=== PATIENT | female | born 1975 | race Two or more races ===

== ENCOUNTER → 2018-01-11 | Day surgery (SDC) | payer OTHER ==
[~2018-01-11] MED LIST: METFORMIN HCL500 MG PO
== END | disposition home or self-care (01) ==
LOC: AMB-ENDOS 05:48
DX: K57.32 Diverticulitis of large intestine without perforation or abscess without bleeding (principal); K64.1 Second degree hemorrhoids

== ENCOUNTER 2020-01-02 07:00 | Day surgery (SDC) | payer OTHER | END 2020-01-02 13:00 | disposition home or self-care (01) | LOC: AMB-ENDOS 07:00 | PROVIDERS: ATTEND Colon & Rectal Surgery | DX: K62.1 Rectal polyp (principal); Z20.828 Contact with and (suspected) exposure to other viral communicable diseases; K64.1 Second degree hemorrhoids ==

== ENCOUNTER 2023-01-23 05:46 | Day surgery (SDC) | payer OTHER ==
[2023-01-23] MEDS ORDERED: MACROBID 100 M100 MG PO (09:29)
[2023-01-23] MEDS ORDERED: TRAM1TAB98 PO (09:30)
== END 2023-01-23 14:55 | disposition home or self-care (01) ==
LOC: CIR.AMB 05:46
PROVIDERS: ATTEND Obstetrics & Gynecology Gynecology
DX: N39.3 Stress incontinence (female) (male) (principal); N36.41 Hypermobility of urethra; N39.8 Other specified disorders of urinary system; Z20.822 Contact with and (suspected) exposure to COVID-19
CPT/HCPCS: 57288; C1771